=== PATIENT | male | born 1950 | race Hispanic/Latino ===

== ENCOUNTER → 2018-01-04 | Outpatient (CLI) | payer OTHER | END | disposition home or self-care (01) | LOC: RAH 07:45 | PROVIDERS: ATTEND Internal Medicine | DX: R94.5 Abnormal results of liver function studies (principal) | CPT/HCPCS: 76705 ==

== ENCOUNTER → 2018-01-08 | Outpatient (CLI) | payer OTHER | END | disposition home or self-care (01) | LOC: RAH 09:34 | PROVIDERS: ATTEND Internal Medicine | DX: I65.29 Occlusion and stenosis of unspecified carotid artery (principal); Z87.891 Personal history of nicotine dependence | CPT/HCPCS: 76775; 93880 ==

== ENCOUNTER → 2018-06-10 | Outpatient (CLI) | payer OTHER | END | disposition home or self-care (01) | LOC: RAH 11:11 | PROVIDERS: ATTEND Internal Medicine | DX: R05 Cough (principal) | CPT/HCPCS: 71046 ==

== ENCOUNTER → 2019-10-08 | Outpatient (CLI) | payer OTHER | END | disposition home or self-care (01) | LOC: RAH 09:19 | PROVIDERS: ATTEND Internal Medicine | DX: R05 Cough (principal); M47.814 Spondylosis without myelopathy or radiculopathy, thoracic region | CPT/HCPCS: 71046 ==

== ENCOUNTER → 2020-03-03 | Outpatient (CLI) | payer OTHER | END | disposition home or self-care (01) | LOC: RAH 11:04 | PROVIDERS: ATTEND Internal Medicine | DX: S20.211A Contusion of right front wall of thorax, initial encounter (principal); R07.89 Other chest pain; X58.XXXA Exposure to other specified factors, initial encounter; Y93.89 Activity, other specified; Y92.89 Other specified places as the place of occurrence of the external cause; Y99.8 Other external cause status | CPT/HCPCS: 71046; 71100 ==

== ENCOUNTER → 2021-07-20 | Outpatient (CLI) | payer OTHER | LOC: RAH 08:56 | PROVIDERS: ATTEND Internal Medicine | DX: R94.5 Abnormal results of liver function studies (principal); K70.0 Alcoholic fatty liver | CPT/HCPCS: 76705 ==

== ENCOUNTER 2022-07-14 16:55 | Emergency (ER) | payer OTHER ==
[~2022-07-14] VITALS: Ht 175.3 cm; Wt 81.6 kg
[2022-07-14] MEDS ORDERED: BENZ-226 PO (17:14)
[2022-07-14] MEDS ORDERED: PARO-37 PO (17:14)
[2022-07-14] MEDS ORDERED: METF-446 PO (17:14)
[2022-07-14] MEDS ORDERED: FOLI0.8T3 PO (17:14)
[2022-07-14] MEDS ORDERED: PRAV40TA3 PO (17:14)
[2022-07-14] MEDS ORDERED: GLYC10.7 IH (17:16)
[2022-07-14] MEDS ORDERED: LOSA100T58 PO (17:16)
[2022-07-14] MEDS ORDERED: METO-408 PO (17:16)
[2022-07-14 17:29] VITALS: BP 103/47
[2022-07-14] MEDS ORDERED: ZOSYN 3.375GM +NS 50ML IVPB SCH (18:00)
[2022-07-14] MEDS ORDERED: ACETAMINOPHEN 325 MG TAB PO PRN (18:00)
[2022-07-14] MEDS ORDERED: ONDANSETRON 4MG INJ IVP PRN (18:00)
[2022-07-14] MEDS ORDERED: LIDOP TP (18:36)
[2022-07-14] MEDS ORDERED: ACET-66 PO (18:36)
[2022-07-14] MEDS ORDERED: MUPI22O TP (18:37)
== END 2022-07-14 18:57 | disposition home or self-care (01) ==
LOC: EDH 16:55
DX: R41.82 Altered mental status, unspecified (principal); S80.02XA Contusion of left knee, initial encounter; S80.01XA Contusion of right knee, initial encounter; S80.212A Abrasion, left knee, initial encounter; S80.211A Abrasion, right knee, initial encounter; J44.9 Chronic obstructive pulmonary disease, unspecified; I10 Essential (primary) hypertension; E11.9 Type 2 diabetes mellitus without complications; E78.00 Pure hypercholesterolemia, unspecified; Z79.84 Long term (current) use of oral hypoglycemic drugs; Z79.899 Other long term (current) drug therapy; W18.39XA Other fall on same level, initial encounter; Y93.89 Activity, other specified; Y92.89 Other specified places as the place of occurrence of the external cause; Y99.8 Other external cause status
CPT/HCPCS: 70450; 72125

== ENCOUNTER → 2022-07-18 | Outpatient (CLI) | payer OTHER ==
[~2022-07-18] MED LIST: ACET-66 PO; BENZ-226 PO; FOLI0.8T3 PO; GLYC10.7 IH; LIDOP TP; LOSA100T58 PO; METF-446 PO; METO-408 PO; MUPI22O TP; PARO-37 PO; PRAV40TA3 PO
== END | disposition home or self-care (01) ==
LOC: RAH 09:39
PROVIDERS: ATTEND Internal Medicine
DX: S80.01XS Contusion of right knee, sequela (principal); S80.02XS Contusion of left knee, sequela; M62.81 Muscle weakness (generalized); M47.816 Spondylosis without myelopathy or radiculopathy, lumbar region; X58.XXXS Exposure to other specified factors, sequela; W19.XXXS Unspecified fall, sequela
CPT/HCPCS: 72070; 72100; 73560

== ENCOUNTER 2022-07-24 13:49 | Emergency (ER) | payer OTHER ==
[~2022-07-24] VITALS: Ht 170.2 cm; Wt 81.6 kg
[~2022-07-24 13:49] MED LIST changes: -LOSA100T58 PO; +LOSA100T59 PO
[2022-07-24 15:24] LABS: BASOPHILS % (AUTO) 0.4 % (0.0-5.0); HEMATOCRIT 33.2 % (42-54); MEAN CORPUSCULAR HGB CONC 35.2 g/dL (32.0-36.0); MEAN CORPUSCULAR VOLUME 93.5 fL (79-99); MONOCYTES % (AUTO) 10.2 % (3.0-13.0); NEUTROPHILS % (AUTO) 78.6 % (40.0-77.0); PLATELET COUNT (AUTO) 306 K/uL (130-400); RED BLOOD CELL COUNT(AUTO) 3.55 MIL/uL (4.50-6.20); RED CELL DISTRIBUTION WIDTH 11.8 % (11.0-15.5)
[2022-07-24 15:33] LABS: CREATININE 1.5 mg/dL (0.5-1.5); POTASSIUM 4.2 mmol/L (3.5-5.1)
[2022-07-24 15:38] LABS: ALBUMIN 3.6 g/dL (3.5-5.0); TOTAL PROTEIN, SERUM 7.9 g/dL (6.0-8.3)
[2022-07-24] MEDS ORDERED: 0.9%NACL 1000ML 1,000 ML IV ONE (16:30)
[2022-07-24] MEDS ORDERED: ONDANSETRON 4MG INJ IVP ONE (16:30)
[2022-07-24] MEDS ORDERED: MORPHINE 2 MG SYG IVP ONE (16:30)
[2022-07-24 17:16] LABS: APPEARANCE,URINE CLEAR (CLEAR); BILIRUBIN,URINE NEGATIVE (NEGATIVE); COLOR,URINE LIGHT-YELLOW (YELLOW); GLUCOSE, URINE (UA) NEGATIVE (NEGATIVE); KETONES,URINE NEGATIVE (NEGATIVE); LEUKOCYTE ESTERASE ,URINE NEGATIVE Leu/uL (NEGATIVE); NITRATE,URINE NEGATIVE (NEGATIVE); OCCULT BLOOD,URINE NEGATIVE (NEGATIVE); PROTEIN,URINE NEGATIVE (NEGATIVE); UROBILINOGEN,URINE 0.2 mg/dL (0.2-1.0)
[2022-07-24 17:33] LABS: CREATININE 1.5 mg/dL (0.5-1.5); POTASSIUM 4.1 mmol/L (3.5-5.1)
[2022-07-24 18:03] LABS: BACTERIA,URINE RARE /HPF (None Seen); MUCUS,URINE RARE LPF (None Seen); RBC,URINE 0-1 /HPF (0-1); WBC,URINE 0-1 /HPF (0-1)
[2022-07-24 18:32] VITALS: BP 160/74
== END 2022-07-24 18:37 | disposition home or self-care (01) ==
LOC: EDH 13:49
DX: S70.02XA Contusion of left hip, initial encounter (principal); E87.1 Hypo-osmolality and hyponatremia; E86.0 Dehydration; I10 Essential (primary) hypertension; E11.9 Type 2 diabetes mellitus without complications; J44.9 Chronic obstructive pulmonary disease, unspecified; Z79.899 Other long term (current) drug therapy; W18.30XA Fall on same level, unspecified, initial encounter; Y93.89 Activity, other specified; Y92.89 Other specified places as the place of occurrence of the external cause; Y99.8 Other external cause status
CPT/HCPCS: 99285; 96374; 70450; 71045; 96361; 96375; 84484; 80053; 85025; 81001; 36415; 73502; 93005; 80048; J7030; J2405

== ENCOUNTER → 2024-11-25 | Outpatient (CLI) | payer OTHER ==
[~2024-11-25] MED LIST changes: -ACET-66 PO; +AEC81 PO; +CETI10CA5 PO; +FLUT16H NASAL; -FOLI0.8T3 PO; +FOLI1 PO; -LIDOP TP; -MUPI22O TP; -PRAV40TA3 PO; +PRAV40TA62 PO
--- NOTE | 2024-11-26 06:51 | HMCIMG ---
EXAMINATION: DUPLEX ULTRASOUND EXAMINATION OF THE BILATERAL CAROTID AND VERTEBRAL ARTERIES. CLINICAL HISTORY: Dizziness. COMPARISON: Carotid Doppler dated 08/03/2022. TECHNIQUE: Real-time ultrasound scan of the bilateral carotid and vertebral arteries, 2-D grayscale, with color Doppler flow and spectral waveform analysis. FINDINGS: Color and spectral Doppler interrogation of the carotid vessels on the right demonstrate peak systolic velocities as follows: CCA (Proximal and distal): 116 and 116 cm/s respectively. ECA: 113 cm/s. ICA (Proximal, mid, and distal): 125, 101, and 108 cm/s respectively. Vertebral artery demonstrates antegrade flow: 37 cm/s. Right ICA/CCA ratio: 1.1 Peak systolic velocities on the left are as follows: CCA (Proximal and distal): 78 and 166 cm/s respectively. ECA: 185 cm/s. ICA (Proximal, mid, and distal): 73, 89, and 89 cm/s respectively. Vertebral artery demonstrates antegrade flow: 49 cm/s. Left ICA/CCA ratio: 0.5 Both the common carotid arteries and their branches reveal mild intimal thickening. There are calcified plaques in the bilateral carotid bulb, external carotid, and proximal internal carotid arteries without significant stenosis. There are raised velocities the left distal common carotid and external carotid arteries. IMPRESSION: Mild intimal thickening in the bilateral carotid arteries and their branches. Calcified plaques in the bilateral carotid bulb, external carotid, and proximal internal carotid arteries without significant stenosis. Raised velocities the left distal common carotid and external carotid arteries. /Melber
--- NOTE | 2024-11-26 07:34 | HMCSR ---
APPROVED REPORT EXAM: Two-dimensional and M-mode echocardiogram with Doppler and color Doppler. INDICATION ICD: Essential hypertension I10 Dizziness and Vertigo 2D Dimensions RVDd3.2 cmLVEF(%)88.8 (>50%)LVED Vol(simp.)78.0 mL IVSd1.1 (0.7-1.1cm)FS(%)57 %LVES Vol(simp.)28.0 mL LVDd2.9 (3.8-5.6cm)LA (2D)4.2 (1.6-4.0cm)LVEF(%, simp.)64 % PWd1.0 (0.7-1.1cm)Ao Root(2D)3.4 (2.0-3.7cm)LA ESV INDEX (BP)30.62 mL/m2 LVDs1.2 (2.5-4.0cm)LVOT diam2.1 (1.8-2.4cm) IVC diam1.6 cm Aortic Valve AoV Vmax1.3 m/[place]am[place] Peak GR6.3 mmHgLVOT Vmax1.2 m/s AoV VTI0.3 mAo Mean GR4.5 mmHgLVOT VTI0.26 m TYRESE (VMAX)3.30 cm2AVA (VTI) 2.8 cm2 Mitral Valve MV E Vmax97.3 cm/sDECEL [id number] msMV Peak GR8 mmHg MV A Drny348.7 cm/sP 1/2 T64 msMV Mean GR3 mmHg E/A ratio0.9MVA (PHT)3.4 cm2MVA (VTI)2.32 cm2 TDI E/E' [id number]/E' Wpwavcq91.3 Medial E' Peak V7.41 cm/sLateral E' Peak V8.62 cm/s Pulmonary Valve PV Vmax1.1 m/sPV VTI0.25 mPV Mean GR2.9 mmHg PV Peak GR4.6 mmHg Left Ventricle The left ventricle is normal size. There is normal LV segmental wall motion. There is normal left shen tricular wall thickness. LVEF is 60-65%. The left ventricular diastolic function is indeterminate. Right Ventricle The right ventricle is normal size. The right ventricular systolic function is normal. Atria The left atrium size is normal. The right atrium size is normal. Aortic Valve The tricuspid aortic valve is sclerotic but not stenotic. No aortic regurgitation is present. There i s no aortic valvular stenosis. Mitral Valve The mitral valve is normal in structure. Posterior mitral valve leaflet and annulus is calcified. The re is no evidence of significant mitral regurgitation. There is no mitral valve stenosis. Tricuspid Valve The tricuspid valve is normal in structure. There is no tricuspid valve regurgitation noted. Pulmonic Valve The pulmonary valve is normal in structure. There is no pulmonic valvular regurgitation. Great Vessels The aortic root is normal in size. The IVC is normal in size and collapses >50% with inspiration. Pericardium There is no pericardial effusion. Conclusion LVEF is 60-65%. The left ventricular diastolic function is indeterminate.
== END | disposition home or self-care (01) ==
LOC: RAH 11:29
PROVIDERS: ATTEND Internal Medicine
DX: I35.8 Other nonrheumatic aortic valve disorders (principal); I65.23 Occlusion and stenosis of bilateral carotid arteries; I10 Essential (primary) hypertension; R42 Dizziness and giddiness
CPT/HCPCS: 93306; 93880